=== PATIENT | female | born 1985 | race Asian ===

== ENCOUNTER 2017-12-13 18:08 | Inpatient (IN) | payer OTHER ==
[~2017-12-13] VITALS: Ht 162.6 cm; Wt 67.3 kg
[2017-12-13] VITALS (11 sets, daily range): BP systolic 101–113; BP diastolic 51–65; PULSE 85–101; TEMP 98.3
[2017-12-13] MEDS ORDERED: TIROSINT50 MC1 PO (19:13)
[2017-12-13] MEDS ORDERED: PRENATAL MVI PO (19:13)
[2017-12-13 21:22] LABS: BASO # 0.1 (0.0-0.2); BASO % 0.4 % (0.0-2.0); EOS # 0.1 (0.0-0.7); EOS % 0.7 % (0-4.0); GRAN # 13.2 (1.4-6.5); GRAN % 83.9 % (42.2-75.2); HEMOGLOBIN 12.3 g/dl (12.5-16.0); LYMPH # 1.4 (1.2-3.4); LYMPH % 8.8 % (20.0-51.0); MEAN CELL VOLUME 92 fl (80.0-100.0); MEAN CORPUSCULAR HEMOGLOBIN 31 pg (27.0-31.0); MEAN CORPUSCULAR HGB CONC 33 g/dl (33.0-37.0); MEAN PLATELET VOLUME 11.7 fl (7.4-10.4); MONO # 0.9 (0.1-0.6); MONO % 5.8 % (1.7-9.3); PLATELET COUNT 205 K/mm3 (130-400); RED BLOOD COUNT 4.02 M/mm3 (4.10-5.30); REDCELL DISTRIBUTION WIDTH-CV 13.7 % (11.5-14.5)
[2017-12-14] VITALS (70 sets, daily range): BP systolic 73–130; BP diastolic 37–83; PULSE 73–146; TEMP 98–99.8
[2017-12-14 13:04] LABS: HEMATOCRIT 28.8 % (37.0-47.0)
[2017-12-14 13:06] LABS: HEMOGLOBIN 9.7 g/dl (12.5-16.0)
[2017-12-14 15:07] LABS: HEMATOCRIT 19.4 % (37.0-47.0)
[2017-12-14 15:08] LABS: HEMOGLOBIN 6.6 g/dl (12.5-16.0)
[2017-12-15 00:44] LABS: HEMATOCRIT 23.7 % (37.0-47.0); HEMOGLOBIN 8.1 g/dl (12.5-16.0)
[2017-12-15 04:00] VITALS: BP 84/52; PULSE 83; TEMP 97.8
[2017-12-15 05:20] VITALS: BP 94/47; PULSE 96
[2017-12-15 10:44] VITALS: BP 100/53; PULSE 98
[2017-12-15 17:32] VITALS: BP 97/54; PULSE 94
[2017-12-15 19:47] VITALS: BP 101/60; PULSE 106; TEMP 98.2
[2017-12-16 08:15] VITALS: BP 99/59; PULSE 89; TEMP 97.9
[2017-12-16] MEDS ORDERED: FERRO-TIME325 MG PO (08:40)
[2017-12-16] MEDS ORDERED: IBU600 MG PO (08:40)
[2017-12-16] MEDS ORDERED: PERCOCET 325 MG1 TA2 PO (08:40)
[2017-12-16] MEDS ORDERED: SENOKOT S 50 MG1 TAB PO (08:41)
== END 2017-12-16 15:15 | disposition home or self-care (01) | DRG 806 ==
LOC: LDRO 18:08 → LDR 19:15 → OB 19:16
PROVIDERS: Obstetrics & Gynecology; Student in an Organized Health Care Education/Training Program
PROC: 10E0XZZ Delivery of Products of Conception, External Approach (ICD-10-PCS; principal; 2017-12-14)
PROC: 0KQM0ZZ Repair Perineum Muscle, Open Approach (ICD-10-PCS; 2017-12-14)
PROC: 0UQGXZZ Repair Vagina, External Approach (ICD-10-PCS; 2017-12-14)
PROC: 0UQMXZZ Repair Vulva, External Approach (ICD-10-PCS; 2017-12-14)
DX: O99.824 Streptococcus B carrier state complicating childbirth (principal); D62 Acute posthemorrhagic anemia; Z37.0 Single live birth; Z3A.38 38 weeks gestation of pregnancy; O99.284 Endocrine, nutritional and metabolic diseases complicating childbirth; E03.9 Hypothyroidism, unspecified; O70.1 Second degree perineal laceration during delivery; O99.02 Anemia complicating childbirth
CPT/HCPCS: J2540; J2590; J7050; J7120; P9016